=== PATIENT | female | born 1995 | race Two or more races ===

== ENCOUNTER 2017-12-23 04:08 | Inpatient (IN) ==
[2017-12-23] MEDS ORDERED: NUBAIN INJ 200 MG VIAL MULTIDOSE IVP PRN (05:13)
[2017-12-23] MEDS ORDERED: D5LR 1L W PITOCIN 10 UNITS/L 10 UNITS/1,000 ML BAG IV PRN (05:13)
[2017-12-23] MEDS ORDERED: PITOCIN IVP ONE (05:13)
[2017-12-23] MEDS ORDERED: PHENERGAN INJ 25 MG IV PRN ×2 (05:13→11:52)
[2017-12-23] MEDS ORDERED: PITOCIN ONE (05:24)
[2017-12-23] MEDS ORDERED: LR 1000 ML IV 1,000 ML IV SCH (06:00)
[2017-12-23 06:05] LABS: BASOPHILS # (AUTO) 0.1 X10^3/uL (0.0-0.1); BASOPHILS % (AUTO) 0.5 % (0.2-1.0); EOSINOPHILS # (AUTO) 0.1 x10^3/uL (0.0-0.2); EOSINOPHILS % (AUTO) 1.3 % (0.9-2.9); HEMATOCRIT 34.8 % (36.0-47.0); HEMOGLOBIN 11.5 g/dL (12.0-16.0); LYMPHOCYTES # (AUTO) 2.7 X10^3/uL (1.3-2.9); LYMPHOCYTES % (AUTO) 26.3 % (21.0-51.0); MEAN CORPUSCULAR HEMOGLOBIN 23.2 pg (27.0-34.0); MEAN CORPUSCULAR HGB CONC 33.1 g/dL (33.0-35.0); MEAN CORPUSCULAR VOLUME 70.1 fL (80.0-100.0); MEAN PLATELET VOLUME 11.8 fL (7.4-11.0); MONOCYTES # (AUTO) 0.5 x10^3/uL (0.3-0.8); MONOCYTES % (AUTO) 5.2 % (0.0-13.0); NEUTROPHILS % (AUTO) 66.7 % (42.0-75.0); PLATELET COUNT 158 X10^3/uL (150.0-450.0); RED BLOOD COUNT 4.96 X10^6/uL (3.5-5.4); RED CELL DISTRIBUTION WIDTH 16.8 % (11.6-16.5); WHITE BLOOD COUNT 10.5 X10^3/uL (3.6-10.0)
[2017-12-23 06:08] LABS: BILIRUBIN,URINE NEGATIVE (NEGATIVE); BLOOD/HEMOGLOBIN,URINE 1+ (NEGATIVE); GLUCOSE, URINE NEGATIVE (NEGATIVE); KETONES,URINE NEGATIVE (NEGATIVE); LEUKOCYTE ESTERASE ,URINE 2+ (NEGATIVE); NITRITES,URINE NEGATIVE (NEGATIVE); PROTEIN,URINE 1+ (NEGATIVE); UROBILINOGEN,URINE NORMAL (NORMAL)
[2017-12-23] MEDS ORDERED: XYLOCAINE 1 % (PLAIN) ONE (06:12)
[2017-12-23] MEDS ORDERED: FENTANYL INJ 100 mcg ONE (06:13)
[2017-12-23] MEDS ORDERED: NAROPIN EPIDURAL 0.2% + FENTANYL 90MCG 60 ML EPI ONE (06:13)
[2017-12-23] MEDS ORDERED: ADRENALINE CHL INJ ONE (06:13)
[2017-12-23] MEDS ORDERED: LR 1000 ML IV 1,000 ML IV ONE ×2 (06:13→07:18)
[2017-12-23 06:29] LABS: APPEARANCE,URINE CLEAR (CLEAR); COLOR,URINE YELLOW (YELLOW)
[2017-12-23 06:30] LABS: BACTERIA,URINE TRACE /HPF (NEGATIVE); BLOOD UREA NITROGEN 11 mg/dL (7-18); CALCIUM 9.9 mg/dL (8.5-10.1); CARBON DIOXIDE 20.7 mmol/L (21-32); CHLORIDE 103 mmol/L (98-107); CREATININE 0.66 mg/dL (0.55-1.02); RBC,URINE 0-2 /HPF (NONE SEEN); SODIUM 136 mmol/L (136-145); SQUAMOUS EPITHELIAL CELL,UR RARE /HPF (NEGATIVE); eGFR NON BLACK RACES > 60 (>60)
[2017-12-23 06:48] LABS: HYPOCHROMASIA SLIGHT; PLATELET MORPHOLOGY COMMENT NORMAL (NORMAL)
[2017-12-23] MEDS ORDERED: FENTANYL INJ 100 mcg EPI ONE (07:18)
[2017-12-23] MEDS ORDERED: NAROPIN EPIDURAL 0.2% 60 ML with FENTANYL INJ 100 mcg 90 MCG IVP SCH ×2 (08:00)
[2017-12-23] MEDS ORDERED: MOTRIN TAB 800 MG PO PRN (11:52)
[2017-12-23] MEDS ORDERED: D5 1/2 NS 1000 ML 1,000 ML with PITOCIN 20 UNITS IV SCH ×2 (12:00)
[2017-12-23] MEDS ORDERED: DERMOPLAST SPRAY TOP PRN (12:09)
[2017-12-23] MEDS ORDERED: ADACEL or BOOSTRIX TDaP VACCINE IM ONE ×2 (12:09→16:47)
[2017-12-23] MEDS ORDERED: D5 1/2 NS 1L W PITOCIN 20 UNITS/L 20 UNITS/1,000 ML BAG IV PRN (12:14)
[2017-12-23] MEDS: MOTRIN TAB 800 MG PO PRN ×2 (16:13→23:48)
[2017-12-24 05:03] LABS: HEMATOCRIT 24.3 % (36.0-47.0); HEMOGLOBIN 8.1 g/dL (12.0-16.0)
[2017-12-24] MEDS ORDERED: NS 100 ML IV 100 ML with VENOFER 400 MG IV NR ×2 (10:00)
[2017-12-24] MEDS ORDERED: NS 250 ML IV 250 ML IV ONE (10:24)
[2017-12-24] MEDS: MOTRIN TAB 800 MG PO PRN ×2 (11:01→23:33)
[2017-12-25] MEDS ORDERED: NS 100 ML IV 100 ML with VENOFER 400 MG IV NR ×2 (10:00)
[2017-12-25] MEDS ORDERED: NS 250 ML IV 250 ML IV ONE (11:47)
[2017-12-25] MEDS: MOTRIN TAB 800 MG PO PRN (16:47)
[2017-12-26 09:23] VITALS: BP 128/76
[2017-12-26] MEDS: MOTRIN TAB 800 MG PO PRN (09:40)
== END 2017-12-26 13:25 | disposition home or self-care (01) | DRG 775 ==
LOC: ER 04:09 → LD 05:13
PROVIDERS: ADMIT Obstetrics & Gynecology Obstetrics; ATTEND Obstetrics & Gynecology Obstetrics
DX: Z23 Encounter for immunization; Z3A.37 37 weeks gestation of pregnancy; Z37.0 Single live birth; O24.429 Gestational diabetes mellitus in childbirth, unspecified control
CPT/HCPCS: 36415; 59409; 80048; 81001; 85014; 85018; 85025; 86592; 86850; 86900; 86901; 90715; 99284; A4222; J0171; J1756; J2590; J3010; J7050; J7120

== ENCOUNTER 2022-03-20 06:30 | Inpatient (IN) ==
[2022-03-20] MEDS ORDERED: D5 1/2 NS 1,000 ML 1,000 ML IV ONE (06:47)
[2022-03-20] MEDS ORDERED: BETADINE SOLN ONE (06:47)
[2022-03-20] MEDS ORDERED: PITOCIN ONE (06:47)
[2022-03-20] MEDS ORDERED: D5 LR + PITOCIN 10 UNITS/L 10 UNITS/1,000 ML BAG IV ONE (06:48)
[2022-03-20] MEDS ORDERED: D5 1/2 NS 1,000 mL + PITOCIN 20 UNITS/L IV 20 UNITS/1,000 ML BAG IV ONE (06:48)
[2022-03-20] MEDS: D5 1/2 NS 1,000 ML 1,000 ML IV SCH (07:00)
[2022-03-20] MEDS ORDERED: NUBAIN INJ 20 MG AMP IVP PRN (07:10)
[2022-03-20] MEDS ORDERED: D5 LR + PITOCIN 10 UNITS/L 10 UNITS/1,000 ML BAG IV PRN (07:10)
[2022-03-20] MEDS ORDERED: DILAUDID INJ IVP PRN (07:10)
[2022-03-20] MEDS ORDERED: MORPHINE SULFATE INJ 2 MG INJ IVP PRN (07:10)
[2022-03-20] MEDS ORDERED: PHENERGAN INJ 25 MG IM PRN ×2 (07:10→17:06)
[2022-03-20] MEDS ORDERED: PITOCIN IVP ONE (07:10)
[2022-03-20] MEDS ORDERED: REGLAN INJ 10 MG VIAL IVP PRN (07:10)
[2022-03-20 07:40] LABS: BILIRUBIN,URINE NEGATIVE (NEGATIVE); BLOOD/HEMOGLOBIN,URINE 2+ (NEGATIVE); GLUCOSE, URINE NEGATIVE (NEGATIVE); KETONES,URINE NEGATIVE (NEGATIVE); LEUKOCYTE ESTERASE ,URINE 3+ (NEGATIVE); NITRITES,URINE NEGATIVE (NEGATIVE); PROTEIN,URINE 2+ (NEGATIVE); UROBILINOGEN,URINE NORMAL (NORMAL)
[2022-03-20 07:42] LABS: BASOPHILS % (AUTO) 0.3 % (0.2-1.0); EOSINOPHILS % (AUTO) 0.3 % (0.9-2.9); HEMATOCRIT 32.8 % (36.0-47.0); LYMPHOCYTES % (AUTO) 22.6 % (21.0-51.0); MEAN CORPUSCULAR HEMOGLOBIN 24.8 pg (27.0-34.0); MEAN CORPUSCULAR HGB CONC 33.4 g/dL (33.0-35.0); MEAN CORPUSCULAR VOLUME 74.3 fL (80.0-100.0); MEAN PLATELET VOLUME 11.4 fL (7.4-11.0); MONOCYTES # (AUTO) 0.4 x10^3/uL (0.3-0.8); MONOCYTES % (AUTO) 4.7 % (0.0-13.0); NEUTROPHILS # (AUTO) 6.3 x10^3/uL (2.2-4.8); NEUTROPHILS % (AUTO) 72.1 % (42.0-75.0); RED BLOOD COUNT 4.42 X10^6/uL (3.5-5.4); RED CELL DISTRIBUTION WIDTH 16.6 % (11.6-16.5); WHITE BLOOD COUNT 8.7 X10^3/uL (3.6-10.0)
[2022-03-20 07:55] LABS: APPEARANCE,URINE CLOUDY (CLEAR); COLOR,URINE YELLOW (YELLOW)
[2022-03-20 07:56] LABS: BACTERIA,URINE 2+ /HPF (NEGATIVE); SQUAMOUS EPITHELIAL CELL,UR MODERATE /HPF (NEGATIVE)
[2022-03-20 08:09] LABS: BLOOD UREA NITROGEN 12 mg/dL (7-18); CALCIUM 8.7 mg/dL (8.5-10.1); CARBON DIOXIDE 19.2 mmol/L (21-32); CHLORIDE 104 mmol/L (98-107); CREATININE 0.54 mg/dL (0.55-1.02); SODIUM 135 mmol/L (136-145); eGFR NON BLACK RACES > 60 (>60)
[2022-03-20 08:53] LABS: MICROCYTOSIS SLIGHT; OVALOCYTES SLIGHT; PLATELET MORPHOLOGY COMMENT NORMAL (NORMAL)
[2022-03-20] MEDS ORDERED: LR 1,000 ML IV 1,000 ML IV ONE (10:02)
[2022-03-20] MEDS ORDERED: FENTANYL VIAL INJ 100 mcg ONE (10:24)
[2022-03-20] MEDS ORDERED: NAROPIN EPIDURAL 0.2% 100 ML ONE (10:25)
[2022-03-20] MEDS: D5 1/2 NS 1,000 ML 1,000 ML with PITOCIN 20 UNITS IV SCH ×2 (17:00)
[2022-03-20] MEDS ORDERED: DERMOPLAST PAIN RELIEF SPRAY TOP PRN (17:40)
[2022-03-20] MEDS ORDERED: AMBIEN PO PRN (17:40)
[2022-03-20] MEDS ORDERED: MILK OF MAGNESIA PO PRN (17:40)
[2022-03-20] MEDS: MOTRIN TAB 800 MG PO PRN (20:33)
[2022-03-21] MEDS: D5 1/2 NS 1,000 ML 1,000 ML with PITOCIN 20 UNITS IV SCH ×6 (02:22→17:03)
[2022-03-21 05:20] LABS: HEMATOCRIT 28.9 % (36.0-47.0); HEMOGLOBIN 9.5 g/dL (12.0-16.0)
[2022-03-21] MEDS ORDERED: PRENATAL PLUS PO SCH (09:00)
[2022-03-21] MEDS: MOTRIN TAB 800 MG PO PRN (16:10)
[2022-03-21] MEDS: D5 1/2 NS 1,000 ML 1,000 ML IV SCH (16:10)
[2022-03-21 16:12] VITALS: BP 118/67
== END 2022-03-21 18:30 | disposition home or self-care (01) | DRG 807 ==
LOC: LD 06:30 → MED/SURG 18:01
PROVIDERS: ADMIT Obstetrics & Gynecology Obstetrics; ATTEND Obstetrics & Gynecology Obstetrics